=== PATIENT | female | born 1965 | race Caucasian/White ===

== ENCOUNTER 2018-03-27 16:17 | Emergency (ER) | payer MEDICAID ==
[~2018-03-27] VITALS: Ht 172.7 cm; Wt 122.0 kg
[2018-03-27 17:03] VITALS: BP 155/105
[2018-03-27] MEDS ORDERED: ondansetron/PF 4mg/2ml inj IV ONE (17:05)
[2018-03-27] MEDS ORDERED: normal saline 1000ML IV soln IVB ONE (17:05)
[2018-03-27 17:21] LABS: BASOPHILS % (AUTO) 0.3 % (0-1); EOSINOPHILS # (AUTO) 0.1 X10'3 (0-0.9); EOSINOPHILS % (AUTO) 1.7 % (0-6); HEMATOCRIT 38.5 % (35.0-45.0); HEMOGLOBIN 13.2 g/dl (12.0-16.0); LYMPHOCYTES # (AUTO) 2.2 X10'3 (1.1-4.8); LYMPHOCYTES % (AUTO) 29.3 % (21-51); MEAN CORPUSCULAR HEMOGLOBIN 29.4 PG (27.0-31.0); MEAN CORPUSCULAR HGB CONC 34.2 % (33.0-36.5); MEAN CORPUSCULAR VOLUME 85.9 FL (78-98); MEAN PLATELET VOLUME 8.2 FL (7.4-10.4); MONOCYTES # (AUTO) 0.3 X10'3 (0-0.9); MONOCYTES % (AUTO) 3.8 % (2-12); NEUTROPHILS # (AUTO) 4.9 X10'3 (1.8-7.7); NEUTROPHILS % (AUTO) 64.9 % (42-75); PLATELET COUNT 219 X10'3 (140-440); RED BLOOD COUNT 4.49 X10'6 (4.20-5.60); RED CELL DISTRIBUTION WIDTH 13.7 % (11.5-14.5); WHITE BLOOD COUNT 7.5 X10'3 (4.5-11.0)
[2018-03-27 17:41] LABS: ALANINE AMINOTRANSFERASE 33 U/L (12-78); ALBUMIN 3.6 G/DL (3.4-5.0); ALBUMIN/GLOBULIN RATIO 1.1 (1.1-1.5); ALKALINE PHOSPHATASE 62 IU/L (46-116); ANION GAP 10 (8-16); ASPARTATE AMINO TRANSFERASE 23 U/L (10-37); BILIRUBIN,TOTAL 0.1 MG/DL (0.1-1.0); BLOOD UREA NITROGEN 16 MG/DL (7-18); BUN/CREATININE RATIO 16.2 (6.6-38.0); CALCIUM 8.9 MG/DL (8.5-10.1); CHLORIDE 101 MMOL/L (99-107); CREATININE 0.99 MG/DL (0.40-0.90); GLUCOSE 168 MG/DL (70-104); POTASSIUM 3.4 MMOL/L (3.5-5.1); SODIUM 137 MMOL/L (135-145); TOTAL CARBON DIOXIDE 25.6 MMOL/L (24-32); TOTAL PROTEIN 6.8 G/DL (6.4-8.2); eGFR 59 ML/MIN
[2018-03-27] MEDS ORDERED: ketorolac trometh. 30mg/ml inj. IV ONE (18:05)
[2018-03-27] MEDS ORDERED: LORazepam 2 mg/ml vial IV ONE (18:05)
== END 2018-03-27 18:40 | disposition home or self-care (01) ==
LOC: ER 16:17
DX: F07.81 Postconcussional syndrome (principal); T67.9XXA Effect of heat and light, unspecified, initial encounter; E86.0 Dehydration; Z88.5 Allergy status to narcotic agent; Z88.1 Allergy status to other antibiotic agents; Z88.8 Allergy status to other drugs, medicaments and biological substances; W22.8XXA Striking against or struck by other objects, initial encounter; Y93.89 Activity, other specified; Y92.89 Other specified places as the place of occurrence of the external cause; Y99.8 Other external cause status
CPT/HCPCS: 36415; 70450; 80053; 85025; 96361; 96374; 96375; 99285; J1885; J2060; J2405; J7030

== ENCOUNTER 2022-08-28 18:16 | Emergency (ER) | payer MEDICAID ==
[~2022-08-28] VITALS: Ht 172.7 cm; Wt 134.1 kg
[2022-08-28 19:16] LABS: CLARITY,URINE CLEAR (Clear); COLOR,URINE YELLOW (Yellow); GLUCOSE, URINE NEGATIVE (Neg); KETONES,URINE NEGATIVE (Neg); LEUKOCYTE ESTERASE ,URINE NEGATIVE (Neg); NITRITES, URINE NEGATIVE (Neg); OCCULT BLOOD,URINE TRACE-INTACT (Neg); PH,URINE 5.5 (4.8-8.0); PROTEIN,URINE NEGATIVE (Neg); UROBILINOGEN,URINE 0.2 E.U/dL (0.2-1.0)
[2022-08-28 19:16] LABS: BASOPHILS % (AUTO) 0.6 % (0-1); EOSINOPHILS # (AUTO) 0.1 X10'3 (0-0.9); HEMATOCRIT 38.1 % (35.0-45.0); HEMOGLOBIN 12.5 g/dl (12.0-16.0); LYMPHOCYTES # (AUTO) 2.5 X10'3 (1.1-4.8); LYMPHOCYTES % (AUTO) 33.1 % (21-51); MEAN CORPUSCULAR HEMOGLOBIN 29.2 PG (27.0-31.0); MEAN CORPUSCULAR HGB CONC 32.8 g/dL (33.0-36.5); MEAN PLATELET VOLUME 7.6 FL (7.4-10.4); MONOCYTES # (AUTO) 0.4 X10'3 (0-0.9); MONOCYTES % (AUTO) 5.7 % (2-12); NEUTROPHILS # (AUTO) 4.4 X10'3 (1.8-7.7); NEUTROPHILS % (AUTO) 58.6 % (42-75); PLATELET COUNT 262 X10'3 (140-440); RED BLOOD COUNT 4.28 X10'6 (4.20-5.60); RED CELL DISTRIBUTION WIDTH 13.5 % (11.5-14.5); WHITE BLOOD COUNT 7.5 X10'3 (4.5-11.0)
[2022-08-28 19:18] LABS: URINE HCG NEGATIVE (NEG)
[2022-08-28 19:24] LABS: UA COLLECTION TYPE CLN CATCH MIDSTREAM
[2022-08-28 19:29] LABS: BACTERIA,URINE FEW /HPF (Neg); MUCUS STRANDS FEW /LPF (Neg); RBC,URINE 0-2 /HPF (0-2); SQUAMOUS EPITHELIAL CELL,UR FEW /LPF (FEW)
[2022-08-28 19:35] LABS: ALANINE AMINOTRANSFERASE 34 U/L (12-78); ALBUMIN 3.8 G/DL (3.4-5.0); ALBUMIN/GLOBULIN RATIO 1.3 (1.1-1.5); ALKALINE PHOSPHATASE 69 IU/L (46-116); ANION GAP 7 (8-16); ASPARTATE AMINO TRANSFERASE 21 U/L (10-37); BILIRUBIN,TOTAL 0.2 MG/DL (0.1-1.0); BLOOD UREA NITROGEN 17 MG/DL (7-18); BUN/CREATININE RATIO 20.5 (6.6-38.0); CALCIUM 9.1 MG/DL (8.5-10.1); CHLORIDE 104 MMOL/L (99-107); CREATININE 0.83 MG/DL (0.40-0.90); GLUCOSE 101 MG/DL (70-104); LIPASE 57 U/L (73-393); POTASSIUM 4.1 MMOL/L (3.5-5.1); SODIUM 141 MMOL/L (135-145); TOTAL CARBON DIOXIDE 29.6 MMOL/L (24-32); TOTAL PROTEIN 6.8 G/DL (6.4-8.2); eGFR 71 ML/MIN
[2022-08-28] MEDS ORDERED: sucralfate 1 gm tablet PO ONE (21:15)
[2022-08-28] MEDS ORDERED: mag hydrox/Alum hydrox/simeth 30ml oral suspension PO ONE (21:15)
[2022-08-28] MEDS ORDERED: ondansetron 4mg rapidly disintigrating tab PO ONE (21:15)
[2022-08-28] MEDS ORDERED: HYDROcodone/acetaminophen 10/325mg tab PO ONE (21:15)
[2022-08-28] MEDS ORDERED: LIDOcaine Viscous 15ml cup MM ONE (21:15)
[2022-08-28] MEDS ORDERED: ONDA4TAB12 PO (21:19)
[2022-08-28] MEDS ORDERED: HYDR-3972 PO (21:19)
[2022-08-28] MEDS ORDERED: SUCR1TAB34 PO (21:19)
[2022-08-28 21:38] VITALS: BP 141/75
== END 2022-08-28 21:46 | disposition home or self-care (01) ==
LOC: ER 18:16
DX: R10.11 Right upper quadrant pain (principal); R07.89 Other chest pain; G89.29 Other chronic pain; Z88.1 Allergy status to other antibiotic agents; Z88.5 Allergy status to narcotic agent
CPT/HCPCS: 36415; 80053; 81001; 81025; 83690; 85025; 87088; 99284

== ENCOUNTER 2022-10-06 19:50 | Emergency (ER) | payer MEDICAID ==
[~2022-10-06] VITALS: Ht 171.4 cm; Wt 142.8 kg
[~2022-10-06 19:50] MED LIST: ONDA4TAB12 PO; SUCR1TAB34 PO
[2022-10-06 20:04] VITALS: BP 188/97
[2022-10-06] MEDS ORDERED: ondansetron 4mg rapidly disintigrating tab PO ONE (21:30)
[2022-10-06] MEDS ORDERED: HYDROcodone/acetaminophen 5mg/325mg tablet PO ONE (21:30)
== END 2022-10-06 22:53 | disposition home or self-care (01) ==
LOC: ER 19:51
DX: M50.822 Other cervical disc disorders at C5-C6 level (principal); M25.521 Pain in right elbow; G89.29 Other chronic pain; Z88.5 Allergy status to narcotic agent; Z88.1 Allergy status to other antibiotic agents; W19.XXXA Unspecified fall, initial encounter; Y93.89 Activity, other specified; Y92.89 Other specified places as the place of occurrence of the external cause; Y99.8 Other external cause status
CPT/HCPCS: 70450; 72125; 99284

== ENCOUNTER 2023-06-07 05:32 | Inpatient (IN) | payer MEDICAID ==
[~2023-06-07] VITALS: Ht 170.2 cm; Wt 125.6 kg
[2023-06-07] VITALS (31 sets, daily range): BP systolic 123–180; BP diastolic 61–99; PULSE 64–88; RESP 13–20; TEMP 96.6–99; O2SAT 92–100
[~2023-06-07 05:32] MED LIST changes: +ACET-1008 PO; +BACL10TA2 PO; +CLON1TAB12 PO; +ESCI-8 PO; +IBUP-1984 PO; +LEVO5TAB29 PO; -ONDA4TAB12 PO; +PSEU-237 PO; -SUCR1TAB34 PO; +ceFAZolin inj. 3,000 MG in normal saline 100ml IV soln 100 ML IV ONE; +celeCOXIB 100mg capsule PO ONE; +famotidine 20mg tablet PO ONE; +gabapentin 300mg capsule PO ONE; +metoclopramide 5 mg/ml inj IV ONE; +oxyCODONE SR 10mg (sust. release) tab -2 tabs (20mg) PO ONE; +ringers solution, lacted 1,000 ML IV SCH; +tranexamic acid inj. 1,000 MG in normal saline IV soln 100ML IV ONE; +vancomycin 1,500 MG in NS 300ml IV soln IV ONE
[2023-06-07] MEDS ORDERED: acetaminophen 325mg tablet PO ONE (05:35)
[2023-06-07] MEDS ORDERED: ROPIVAcaine 0.5% (5mg/ml) 30ml vial ONE ×2 (07:03→08:15)
[2023-06-07] MEDS ORDERED: epiNEPHrine 1 mg/ml inj ONE (07:03)
[2023-06-07] MEDS ORDERED: cloNIDine hcl/PF 100mcg/ml inj ONE ×2 (07:04→07:28)
[2023-06-07] MEDS ORDERED: BUPIVACAINE/MELOXICAM 14 ML VIAL IL ONE (07:07)
[2023-06-07] MEDS ORDERED: diphenhydrAMINE 25mg capsule PO PRN ×2 (07:15)
[2023-06-07] MEDS ORDERED: bisacodyl 10mg suppository rectal RC PRN (07:15)
[2023-06-07] MEDS ORDERED: HYDROcodone/acetaminophen 10/325mg tab PO PRN (07:15)
[2023-06-07] MEDS ORDERED: magnesium hydroxide 30ml (MOM) UD suspension PO PRN (07:15)
[2023-06-07] MEDS ORDERED: naloxone 0.4 mg/ml inj IV PRN (07:15)
[2023-06-07] MEDS ORDERED: ondansetron/PF 4mg/2ml inj IV PRN ×2 (07:15→08:10)
[2023-06-07] MEDS ORDERED: fentaNYL/PF 50MCG/1 ML 2ML syringe ONE (07:23)
[2023-06-07] MEDS ORDERED: propofol inj 20 ML IV ONE ×3 (07:59)
[2023-06-07] MEDS ORDERED: midazolam 1 mg/ML 2ml injection ONE (07:59)
[2023-06-07] MEDS ORDERED: vancomycin 1,000mg inj ONE (08:00)
[2023-06-07] MEDS: LEVOCETIRIZINE DIHYDROCHLORIDE 5 MG PO SCH (08:00)
[2023-06-07] MEDS ORDERED: meperidine/PF 25mg/ml syringe IV PRN (08:10)
[2023-06-07] MEDS ORDERED: fentaNYL/PF 50MCG/1 ML 2ML syringe IV PRN (08:10)
[2023-06-07] MEDS ORDERED: hydrALAZINE 20mg/ml inj. IV PRN (08:10)
[2023-06-07] MEDS ORDERED: HYDROmorphone/PF 0.2 MG/ML SYRINGE IV PRN ×2 (08:10)
[2023-06-07] MEDS ORDERED: labetalol 20mg/4ml (5mg/ml) syringe IV PRN (08:10)
[2023-06-07] MEDS ORDERED: ringers solution, lacted 1,000 ML IV SCH (08:10)
[2023-06-07] MEDS ORDERED: ketorolac trometh. 30mg/ml inj. IV ONE (08:10)
[2023-06-07] MEDS ORDERED: proCHLORperazine 10 MG/2 ml inj IV PRN (08:10)
[2023-06-07] MEDS ORDERED: acetaminophen 1,000mg/100ml IV 100 ML IV PRN (08:10)
[2023-06-07] MEDS ORDERED: dexamethasone sod phosphate 4mg/ml inj. ONE (08:15)
--- NOTE | 2023-06-07 09:35 | NUR ---
Received from OR via BED, accompanied by Anesthesiologist and report given by Anesthesiologist. PATIENT WAKING UP, NO S/S OF PAIN, V/S WNL, SCD ON, 20G TO RUE, drsg to RIGHT KNEE CDI
[2023-06-07] MEDS: fentaNYL/PF 50MCG/1 ML 2ML syringe IV PRN ×2 (12:21→12:31)
--- NOTE | 2023-06-07 12:35 | NUR ---
PATIENT A&OX4, MEDS GIVEN FOR PAIN. V/S WNL, SCD ON, 20G TO RUE, drsg to RIGHT KNEE CDI. PATIENT TAKEN TO [facility] BECAUSE WE HAVE NO RN IN [facility]TH[facility] TO TAKE OVER CARE. REPORT GIVEN TO ANTONIO COCHRAN IN PAS AND PATIENT TAKEN THERE WITH ALL BELONGINGS.
--- NOTE | 2023-06-07 12:45 | NUR ---
ASSUMED CARE OF THIS PATIENT ON [facility]. SHE IS WAITING FOR A ROOM. CALLED PHARMACY TO HAVE HER FLUIDS AND TXA SENT TO [facility]. WILL HANG HER TXA AT 1300
[2023-06-07] MEDS ORDERED: TRANEXAMIC ACID IV ONE (13:00)
[2023-06-07] MEDS ORDERED: NORMAL SALINE IV ONE (13:00)
[2023-06-07] MEDS: HYDROcodone/acetaminophen 10/325mg tab PO PRN ×2 (15:07→21:35)
[2023-06-07] MEDS: potassium cl 20mEq in 1/2 NS 1,000 ML IV SCH ×2 (15:08→20:23)
[2023-06-07] MEDS ORDERED: ceFAZolin/D5W- 1GM premix 50 ML IV SCH (16:00)
--- NOTE | 2023-06-07 16:15 | NUR ---
CALLED REPORT TO RN ON ORTHO. TOOK PATIENT TO THE FLOOR. RN AT BEDSIDE
--- NOTE | 2023-06-07 16:26 | NUR ---
Called pharmacist. Clarified flow rate. They state to run Cefazolin 3GM at 100ml/hr.
[2023-06-07] MEDS: ceFAZolin inj. 3,000 MG in normal saline 100ml IV soln 100 ML IV SCH ×2 (16:36→23:18)
[2023-06-07] MEDS ORDERED: vancomycin inj 1,750 MG in normal saline 500ml IV soln 350 ML IV ONE (20:00)
[2023-06-07] MEDS: baclofen 10mg tablet PO SCH (20:18)
[2023-06-07] MEDS: sennosides 8.6mg tablet PO SCH (20:18)
[2023-06-07] MEDS: ascorbic acid 500mg tablet PO SCH (20:19)
[2023-06-07] MEDS: gabapentin 300mg capsule PO SCH (20:19)
[2023-06-08 02:00] VITALS: BP 165/87; PULSE 79; RESP 17; TEMP 97.2; O2SAT 100
[2023-06-08] MEDS: HYDROcodone/acetaminophen 10/325mg tab PO PRN ×4 (02:34→21:48)
[2023-06-08] MEDS: potassium cl 20mEq in 1/2 NS 1,000 ML IV SCH ×3 (03:38→18:47)
--- NOTE | 2023-06-08 06:04 | NUR ---
Problems reprioritized. Patient report given, questions answered & plan of care reviewed with Camila COCHRAN. Addendum: 06/08/23 at 0605 by Priscilla Mcfarland RN Amended: Links added.
--- NOTE | 2023-06-08 06:15 | NUR ---
Patient in room ORTH[facility] 4013. I have received report from Priscilla COCHRAN and had the opportunity to ask questions and assume patient care.
[2023-06-08] MEDS: LEVOCETIRIZINE DIHYDROCHLORIDE 5 MG PO SCH (08:00)
[2023-06-08] MEDS: baclofen 10mg tablet PO SCH ×3 (08:27→18:47)
[2023-06-08] MEDS: gabapentin 300mg capsule PO SCH ×3 (08:27→18:46)
[2023-06-08] MEDS: ESCITALOPRAM OXALATE 5 MG TABLET PO SCH (08:27)
[2023-06-08] MEDS: HYDROmorphone inj. 0.5 MG/0.5 ML DISP.SYRIN IV PRN ×2 (08:27→10:12)
[2023-06-08] MEDS: ascorbic acid 500mg tablet PO SCH ×2 (08:27→18:47)
[2023-06-08] MEDS: multivitamins, therapeutics tablet PO SCH (08:30)
[2023-06-08] MEDS: ceFAZolin inj. 3,000 MG in normal saline 100ml IV soln 100 ML IV SCH (08:40)
[2023-06-08] MEDS: aspirin 325mg tablet PO SCH (08:40)
[2023-06-08 10:00] VITALS: BP 183/7; PULSE 76; RESP 18; TEMP 98.4; O2SAT 97
[2023-06-08 10:15] LABS: ANION GAP 3 (8-16); CHLORIDE 100 MMOL/L (99-107); SODIUM 133 MMOL/L (135-145); TOTAL CARBON DIOXIDE 29.9 MMOL/L (24-32)
[2023-06-08 10:16] LABS: BASOPHILS # (AUTO) 0.1 X10'3 (0-0.2); EOSINOPHILS # (AUTO) 0.2 X10'3 (0-0.9); EOSINOPHILS % (AUTO) 2.1 % (0-6); HEMATOCRIT 36.4 % (35.0-45.0); HEMOGLOBIN 12.2 g/dl (12.0-16.0); LYMPHOCYTES # (AUTO) 1.5 X10'3 (1.1-4.8); LYMPHOCYTES % (AUTO) 13.5 % (21-51); MEAN CORPUSCULAR HEMOGLOBIN 29.3 PG (27.0-31.0); MEAN CORPUSCULAR HGB CONC 33.4 g/dL (33.0-36.5); MEAN CORPUSCULAR VOLUME 87.7 FL (78-98); MEAN PLATELET VOLUME 7.7 FL (7.4-10.4); MONOCYTES # (AUTO) 0.8 X10'3 (0-0.9); NEUTROPHILS # (AUTO) 8.3 X10'3 (1.8-7.7); NEUTROPHILS % (AUTO) 76.4 % (42-75); PLATELET COUNT 268 X10'3 (140-440); RED BLOOD COUNT 4.16 X10'6 (4.20-5.60); RED CELL DISTRIBUTION WIDTH 13.8 % (11.5-14.5); WHITE BLOOD COUNT 10.8 X10'3 (4.5-11.0)
--- NOTE | 2023-06-08 10:51 | NUR ---
Joint surgery consult: Pt s/p knee surgery. Pt busy with RN during RD visit. Placed high protein nutrition handout in pt's chart with RD contact information. Will remain available for any nutrition questions or concerns. Addendum: 06/08/23 at [address] Amended: Links added.
--- NOTE | 2023-06-08 11:35 | NUR ---
Pt was very agitated and in pain. she refused morning vital signs. She was administered 0.5mg of dialudid per her request for pain. She was told if she continued to be in pain I would reassess her and administer norco in 45 min. She was reassessed and found to be in pain. Dr Mane Norris was contacted at this time in which he said he wanted me to administer the 2 norco 10/325 that were ordered and nothing more. I went to the room and administered the norco at which point the pt was very angry. I informed her that her provider had been contacted and this is what he would like to be administered.
[2023-06-08] MEDS: HYDROmorphone 1 mg/ml syringe IV PRN ×2 (12:57→18:47)
[2023-06-08 18:00] VITALS: BP 149/74; PULSE 76; RESP 17; TEMP 98.3; O2SAT 96
--- NOTE | 2023-06-08 18:12 | NUR ---
Problems reprioritized. Patient report given, questions answered & plan of care reviewed with Priscilla COCHRAN.
[2023-06-08] MEDS: sennosides 8.6mg tablet PO SCH (18:46)
[2023-06-08] MEDS: celeCOXIB 100mg capsule PO SCH (18:47)
[2023-06-08 20:00] VITALS: RESP 17; O2SAT 96
--- NOTE | 2023-06-08 21:30 | NUR ---
RACHELLE MACHINE FOUND DETACHED FROM TUBING, DRESSING WITH STRIKETHROUGH, LEG SLEEVE CDI. NEW RACHELLE DRESSING PLACED. MACHINE NOW IN WORKING ORDER. Addendum: 06/09/23 at 0522 by Priscilla Mcfarland RN Amended: Links added.
[2023-06-09] MEDS: HYDROmorphone 1 mg/ml syringe IV PRN (02:22)
[2023-06-09] MEDS: potassium cl 20mEq in 1/2 NS 1,000 ML IV SCH (02:30)
[2023-06-09] MEDS: HYDROcodone/acetaminophen 10/325mg tab PO PRN (05:02)
[2023-06-09] MEDS: clonazePAM 1mg tablet PO PRN (05:48)
--- NOTE | 2023-06-09 05:50 | NUR ---
PT VERY ANXIOUS, VS TAKEN AND BP IS ELEVATED, PT WAS GIVEN PAIN MEDICAITON EARLIER AND WILL TRY ANTIANXIETY MEDICATION. Addendum: 06/09/23 at 0619 by Priscilla Mcfarland RN Amended: Links added.
[2023-06-09 06:00] VITALS: BP 198/97; PULSE 82; RESP 16; TEMP 97.6; O2SAT 96
[2023-06-09 06:07] LABS: BASOPHILS % (AUTO) 0.3 % (0-1); EOSINOPHILS % (AUTO) 0.3 % (0-6); HEMATOCRIT 38.6 % (35.0-45.0); HEMOGLOBIN 12.7 g/dl (12.0-16.0); LYMPHOCYTES # (AUTO) 1.8 X10'3 (1.1-4.8); LYMPHOCYTES % (AUTO) 16.9 % (21-51); MEAN CORPUSCULAR HEMOGLOBIN 29.5 PG (27.0-31.0); MEAN CORPUSCULAR VOLUME 89.3 FL (78-98); MEAN PLATELET VOLUME 7.7 FL (7.4-10.4); MONOCYTES # (AUTO) 0.8 X10'3 (0-0.9); MONOCYTES % (AUTO) 7.4 % (2-12); NEUTROPHILS # (AUTO) 7.8 X10'3 (1.8-7.7); NEUTROPHILS % (AUTO) 75.1 % (42-75); PLATELET COUNT 237 X10'3 (140-440); RED BLOOD COUNT 4.32 X10'6 (4.20-5.60); RED CELL DISTRIBUTION WIDTH 14.4 % (11.5-14.5); WHITE BLOOD COUNT 10.3 X10'3 (4.5-11.0)
[2023-06-09] MEDS ORDERED: hydrALAZINE 20mg/ml inj. IV ONE (06:55)
[2023-06-09 08:00] VITALS: RESP 18; O2SAT 98
[2023-06-09] MEDS: LEVOCETIRIZINE DIHYDROCHLORIDE 5 MG PO SCH (08:00)
[2023-06-09] MEDS: aspirin 325mg tablet PO SCH (09:30)
[2023-06-09] MEDS: ascorbic acid 500mg tablet PO SCH ×2 (09:30→20:40)
[2023-06-09] MEDS: ESCITALOPRAM OXALATE 5 MG TABLET PO SCH (09:30)
[2023-06-09] MEDS: baclofen 10mg tablet PO SCH ×3 (09:30→20:41)
[2023-06-09] MEDS: gabapentin 300mg capsule PO SCH ×3 (09:30→20:40)
[2023-06-09] MEDS: multivitamins, therapeutics tablet PO SCH (09:30)
[2023-06-09] MEDS: celeCOXIB 100mg capsule PO SCH ×2 (09:31→20:41)
[2023-06-09 10:00] VITALS: BP 176/110; PULSE 78; RESP 18; TEMP 98.1; O2SAT 98
[2023-06-09] MEDS: oxyCODONE/APAP 10/325mg tablet PO PRN ×3 (11:47→22:14)
[2023-06-09 14:10] VITALS: RESP 18; O2SAT 98
[2023-06-09 18:00] VITALS: BP 180/68; PULSE 82; RESP 17; TEMP 96.9; O2SAT 95
--- NOTE | 2023-06-09 18:28 | NUR ---
Problems reprioritized. Patient report given, questions answered & plan of care reviewed with DIMAS Davila.
[2023-06-09] MEDS: sennosides 8.6mg tablet PO SCH (20:40)
[2023-06-09 22:00] VITALS: BP 172/82; PULSE 72; RESP 14; TEMP 97.6; O2SAT 98
[2023-06-09] MEDS: hydrALAZINE 20mg/ml inj. IV PRN (23:41)
[2023-06-10 04:00] VITALS: BP 146/75
[2023-06-10] MEDS: oxyCODONE/APAP 10/325mg tablet PO PRN ×4 (04:08→23:56)
[2023-06-10 05:16] LABS: BASOPHILS # (AUTO) 0.1 X10'3 (0-0.2); BASOPHILS % (AUTO) 0.7 % (0-1); EOSINOPHILS # (AUTO) 0.1 X10'3 (0-0.9); EOSINOPHILS % (AUTO) 0.9 % (0-6); HEMATOCRIT 35.5 % (35.0-45.0); HEMOGLOBIN 11.8 g/dl (12.0-16.0); LYMPHOCYTES # (AUTO) 2.7 X10'3 (1.1-4.8); MEAN CORPUSCULAR HEMOGLOBIN 29.4 PG (27.0-31.0); MEAN CORPUSCULAR HGB CONC 33.2 g/dL (33.0-36.5); MEAN CORPUSCULAR VOLUME 88.4 FL (78-98); MONOCYTES # (AUTO) 0.5 X10'3 (0-0.9); MONOCYTES % (AUTO) 6.1 % (2-12); NEUTROPHILS # (AUTO) 5.3 X10'3 (1.8-7.7); NEUTROPHILS % (AUTO) 61.3 % (42-75); PLATELET COUNT 280 X10'3 (140-440); RED BLOOD COUNT 4.02 X10'6 (4.20-5.60); RED CELL DISTRIBUTION WIDTH 14.4 % (11.5-14.5); WHITE BLOOD COUNT 8.7 X10'3 (4.5-11.0)
--- NOTE | 2023-06-10 06:40 | NUR ---
Problems reprioritized. Patient report given, questions answered & plan of care reviewed with DIMAS BRADEN.
[2023-06-10 07:04] VITALS: BP 181/74; PULSE 74; RESP 20; TEMP 97.6; O2SAT 97
[2023-06-10] MEDS: LEVOCETIRIZINE DIHYDROCHLORIDE 5 MG PO SCH (08:00)
[2023-06-10] MEDS: celeCOXIB 100mg capsule PO SCH ×2 (08:53→19:37)
[2023-06-10 08:55] VITALS: RESP 18
[2023-06-10] MEDS: ESCITALOPRAM OXALATE 5 MG TABLET PO SCH (08:56)
[2023-06-10] MEDS: gabapentin 300mg capsule PO SCH ×3 (08:57→19:36)
[2023-06-10] MEDS: baclofen 10mg tablet PO SCH ×3 (08:57→19:35)
[2023-06-10] MEDS: aspirin 325mg tablet PO SCH (08:58)
[2023-06-10] MEDS: ascorbic acid 500mg tablet PO SCH ×2 (08:58→19:42)
[2023-06-10] MEDS: multivitamins, therapeutics tablet PO SCH (08:58)
[2023-06-10 10:00] VITALS: BP 162/83; PULSE 78; RESP 21; TEMP 97.6; O2SAT 97
[2023-06-10 18:00] VITALS: BP 204/71; PULSE 83; RESP 18; TEMP 97; O2SAT 97
[2023-06-10] MEDS: sennosides 8.6mg tablet PO SCH (19:45)
[2023-06-10 22:00] VITALS: BP 158/94; PULSE 72; RESP 16; TEMP 98.6; O2SAT 96
[2023-06-10] MEDS: hydrALAZINE 20mg/ml inj. IV PRN (23:55)
[2023-06-11] VITALS (7 sets, daily range): BP systolic 167–188; BP diastolic 64–81; PULSE 78–104; RESP 15–20; TEMP 96.9–98.6; O2SAT 95–99
[2023-06-11] MEDS: oxyCODONE/APAP 10/325mg tablet PO PRN ×2 (05:57→17:33)
--- NOTE | 2023-06-11 06:17 | NUR ---
Problems reprioritized. Patient report given, questions answered & plan of care reviewed with DIMAS Mancilla.
[2023-06-11] MEDS: baclofen 10mg tablet PO SCH (08:00)
[2023-06-11] MEDS: LEVOCETIRIZINE DIHYDROCHLORIDE 5 MG PO SCH (08:00)
[2023-06-11] MEDS: celeCOXIB 100mg capsule PO SCH ×2 (08:16→20:54)
[2023-06-11] MEDS: ESCITALOPRAM OXALATE 5 MG TABLET PO SCH (08:17)
[2023-06-11] MEDS: ascorbic acid 500mg tablet PO SCH ×2 (08:18→20:53)
[2023-06-11] MEDS: multivitamins, therapeutics tablet PO SCH (08:20)
[2023-06-11] MEDS: aspirin 325mg tablet PO SCH (08:21)
[2023-06-11] MEDS: gabapentin 300mg capsule PO SCH ×3 (08:21→20:54)
[2023-06-11] MEDS: acetaminophen 325mg tablet PO PRN (08:35)
[2023-06-11] MEDS: clonazePAM 1mg tablet PO PRN ×2 (08:43→20:58)
[2023-06-11] MEDS ORDERED: baclofen 10mg tablet PO PRN (09:15)
[2023-06-11 14:18] LABS: BASOPHILS % (AUTO) 0.6 % (0-1); EOSINOPHILS # (AUTO) 0.2 X10'3 (0-0.9); EOSINOPHILS % (AUTO) 2.2 % (0-6); HEMATOCRIT 35.1 % (35.0-45.0); HEMOGLOBIN 11.5 g/dl (12.0-16.0); LYMPHOCYTES # (AUTO) 2.3 X10'3 (1.1-4.8); LYMPHOCYTES % (AUTO) 25.7 % (21-51); MEAN CORPUSCULAR HGB CONC 32.7 g/dL (33.0-36.5); MEAN CORPUSCULAR VOLUME 88.8 FL (78-98); MEAN PLATELET VOLUME 7.7 FL (7.4-10.4); MONOCYTES # (AUTO) 0.6 X10'3 (0-0.9); MONOCYTES % (AUTO) 6.6 % (2-12); NEUTROPHILS # (AUTO) 5.7 X10'3 (1.8-7.7); NEUTROPHILS % (AUTO) 64.9 % (42-75); PLATELET COUNT 341 X10'3 (140-440); RED BLOOD COUNT 3.95 X10'6 (4.20-5.60); RED CELL DISTRIBUTION WIDTH 14.4 % (11.5-14.5); WHITE BLOOD COUNT 8.8 X10'3 (4.5-11.0)
[2023-06-11 14:32] LABS: ALANINE AMINOTRANSFERASE 35 U/L (12-78); ALBUMIN 2.9 G/DL (3.4-5.0); ALBUMIN/GLOBULIN RATIO 0.9 (1.1-1.5); ALKALINE PHOSPHATASE 75 IU/L (46-116); ANION GAP 4 (8-16); ASPARTATE AMINO TRANSFERASE 31 U/L (10-37); BILIRUBIN,TOTAL 0.3 MG/DL (0.1-1.0); BLOOD UREA NITROGEN 16 MG/DL (7-18); BUN/CREATININE RATIO 20.8 (10.0-20.0); CALCIUM 9.5 MG/DL (8.5-10.1); CHLORIDE 99 MMOL/L (99-107); CREATININE 0.77 MG/DL (0.40-0.90); GLUCOSE 159 MG/DL (70-104); POTASSIUM 3.3 MMOL/L (3.5-5.1); SODIUM 137 MMOL/L (135-145); TOTAL CARBON DIOXIDE 33.9 MMOL/L (24-32); TOTAL PROTEIN 6.3 G/DL (6.4-8.2); eCRCL 79 ML/MIN; eGFR 78 ML/MIN
--- NOTE | 2023-06-11 18:30 | NUR ---
Patient in room [facility]THO 4013. I have received report from DIMAS Mancilla and had the opportunity to ask questions and assume patient care.
[2023-06-11] MEDS: sennosides 8.6mg tablet PO SCH (20:54)
[2023-06-12] MEDS: oxyCODONE/APAP 10/325mg tablet PO PRN ×2 (03:55→08:25)
[2023-06-12] MEDS: acetaminophen 325mg tablet PO PRN ×2 (04:57→11:08)
[2023-06-12 06:00] VITALS: BP 137/77; PULSE 85; RESP 16; TEMP 98.4; O2SAT 97
--- NOTE | 2023-06-12 06:33 | NUR ---
Problems reprioritized. Patient report given, questions answered & plan of care reviewed with DIMAS Mancilla.
[2023-06-12] MEDS: LEVOCETIRIZINE DIHYDROCHLORIDE 5 MG PO SCH (08:00)
[2023-06-12] MEDS: ESCITALOPRAM OXALATE 5 MG TABLET PO SCH (08:19)
[2023-06-12] MEDS: aspirin 325mg tablet PO SCH (08:19)
[2023-06-12] MEDS: gabapentin 300mg capsule PO SCH ×2 (08:19→13:44)
[2023-06-12 08:20] VITALS: RESP 18
[2023-06-12] MEDS: celeCOXIB 100mg capsule PO SCH (08:20)
[2023-06-12] MEDS: multivitamins, therapeutics tablet PO SCH (08:21)
[2023-06-12] MEDS: ascorbic acid 500mg tablet PO SCH (08:22)
[2023-06-12 08:25] VITALS: RESP 18
[2023-06-12] MEDS ORDERED: amLODIPine 5mg tablet PO SCH (08:45)
[2023-06-12] MEDS ORDERED: baclofen 10mg tablet PO PRN (08:50)
[2023-06-12] MEDS ORDERED: clonazePAM 0.5mg tablet PO PRN (08:50)
--- NOTE | 2023-06-12 10:28 | NUR ---
Patient in room [facility]THO 4013. I have received report from DIMAS Mancilla and had the opportunity to ask questions and assume patient care.
--- NOTE | 2023-06-12 10:55 | NUR ---
Pt has declined to take the norvasc that the provider prescribed. She wants to see "how the anxiety medicine helps with her blood pressure first". Blood pressure 166/68 right now, patient is stable and in no distress. I will continue to monitor patients blood pressure and if patient becomes symptomatic.
--- NOTE | 2023-06-12 12:48 | NUR ---
Problems reprioritized. Patient report given, questions answered & plan of care reviewed with DIMAS Mancilla.
--- NOTE | 2023-06-12 13:02 | NUR ---
Initial: Pt DX osteoarthritis of knee s/p knee replacement, accelerated hypertension, anxiety/panic attacks, and hypokalemia per EMR. Pt continues on a regular diet with average PO intake of 35% x 11 meals which met 52% of estimated kcal needs and 47% of estimated protein needs. Pt seen by MIMA at bedside however pt in a deep sleep using Bi-pap/CPAP thus unable to obtain food preferences at this time. Recommend Ensure Enlive TID to help better meet estimated needs; MD notified. LBM on 06/11 per EMR. Will continue to monitor and make recommendations as appropriate. Recommendations: 1.continue regular diet 2.Ensure Enlive TIDWM; pending physician approval in EMR 3.continue Vitamin C and Multivitamin per MD 4.routine bowel care 5.weekly scaled wts Addendum: 06/12/23 at [address] Amended: Links added.
[2023-06-12 13:45] VITALS: BP_SYST 164; PULSE 87
== END 2023-06-12 15:07 | disposition home or self-care (01) | DRG 326 ==
LOC: PAS 05:32 → ORTHO 4S 07:16 → UNDODISIN 06-11 17:56
PROVIDERS: ADMIT Orthopaedic Surgery; ATTEND Orthopaedic Surgery
PROC: 3E0T3BZ Introduction of Anesthetic Agent into Peripheral Nerves and Plexi, Percutaneous Approach (ICD-10-PCS; 2023-06-07)
PROC: 3E0T33Z Introduction of Anti-inflammatory into Peripheral Nerves and Plexi, Percutaneous Approach (ICD-10-PCS; 2023-06-07)
PROC: 0SRC0J9 Replacement of Right Knee Joint with Synthetic Substitute, Cemented, Open Approach (ICD-10-PCS; principal; 2023-06-07 07:32)
DX: M17.11 Unilateral primary osteoarthritis, right knee (principal); D62 Acute posthemorrhagic anemia; E87.6 Hypokalemia; F41.9 Anxiety disorder, unspecified; I10 Essential (primary) hypertension; F41.0 Panic disorder [episodic paroxysmal anxiety]; Z79.82 Long term (current) use of aspirin; Z79.899 Other long term (current) drug therapy
CPT/HCPCS: 36415; 70450; 71046; 73560; 80051; 80053; 82948; 84443; 85025; 86885; 86900; 86901; 87081; 97116; 97161; 97530; A4215; A4615; A6258; A6449; A7000; C1713; C1776; G0378; J0131; J0171; J0360; J0690; J0735; J1100; J1170; J1885; J2250; J2405; J2704; J2795; J3010; J3370; J3480; J3490; J7040; J7120

== ENCOUNTER 2024-01-22 19:04 | Emergency (ER) | payer MEDICAID ==
[~2024-01-22] VITALS: Ht 170.2 cm; Wt 115.0 kg
[~2024-01-22 19:04] MED LIST changes: -ceFAZolin inj. 3,000 MG in normal saline 100ml IV soln 100 ML IV ONE; -celeCOXIB 100mg capsule PO ONE; -famotidine 20mg tablet PO ONE; -gabapentin 300mg capsule PO ONE; -metoclopramide 5 mg/ml inj IV ONE; -oxyCODONE SR 10mg (sust. release) tab -2 tabs (20mg) PO ONE; -ringers solution, lacted 1,000 ML IV SCH; -tranexamic acid inj. 1,000 MG in normal saline IV soln 100ML IV ONE; -vancomycin 1,500 MG in NS 300ml IV soln IV ONE
[2024-01-22 19:32] VITALS: BP 182/77; PULSE 79; TEMP 98.5; O2SAT 98
[2024-01-22 19:58] VITALS: RESP 16
[2024-01-22] MEDS: acetaminophen 325mg tablet PO ONE (21:05)
== END 2024-01-22 21:08 | disposition home or self-care (01) ==
LOC: ER 19:05
DX: S05.12XA Contusion of eyeball and orbital tissues, left eye, initial encounter (principal); Z88.8 Allergy status to other drugs, medicaments and biological substances; Z88.5 Allergy status to narcotic agent; Z79.899 Other long term (current) drug therapy; Z79.2 Long term (current) use of antibiotics; R51.9 Headache, unspecified; X58.XXXA Exposure to other specified factors, initial encounter; Y93.89 Activity, other specified; Y92.89 Other specified places as the place of occurrence of the external cause; Y99.8 Other external cause status
CPT/HCPCS: 70450; 99284